=== PATIENT | female | born 1965 | race Caucasian/White ===

== ENCOUNTER 2023-06-22 16:28 | Emergency (ER) | payer MEDICARE, BC ==
[~2023-06-22] VITALS: Ht 167.6 cm; Wt 72.6 kg
[2023-06-22 19:41] VITALS: BP 144/97
[2023-06-22 19:47] LABS: BASOPHILS ABSOLUTE AUTO 0.06 K/mm3 (0.00-0.23); BASOPHILS PERCENT AUTO 1 % (0-2); EOSINOPHILS ABSOLUTE AUTO 0.05 K/mm3 (0.00-0.68); EOSINOPHILS PERCENT AUTO 1 % (0-6); Hemoglobin 13.2 g/dL (11.5-16.0); IMMATURE GRAN ABSOLUTE AUTO 0.05 K/mm3 (0.00-0.10); IMMATURE GRAN PERCENT AUTO 1 % (0-1); LYMPHOCYTES ABSOLUTE AUTO 1.46 K/mm3 (0.84-5.20); LYMPHOCYTES PERCENT AUTO 14 % (21-46); MONOCYTES ABSOLUTE AUTO 0.67 K/mm3 (0.16-1.47); MONOCYTES PERCENT AUTO 7 % (4-13); Mean Corpuscular HGB 28.8 pg (26.0-34.0); Mean Corpuscular HGB Conc 33.8 g/dL (31.5-36.5); Mean Corpuscular Volume 85 fL (80-100); Mean Platelet Volume 8.9 fL (9.1-12.4); NEUTROPHILS ABSOLUTE AUTO 7.98 K/mm3 (1.96-9.15); NEUTROPHILS PERCENT AUTO 78 % (41-73); Platelet Count 446 K/mm3 (150-400); RDW Coefficient Variation 13.4 % (11.7-14.2); RDW Standard Deviation 41.5 fL (35.1-46.3); Red Blood Cell Count 4.59 M/mm3 (3.80-5.20); White Blood Cell Count 10.27 K/mm3 (4.00-11.30)
[2023-06-22] MEDS ORDERED: TIZA4 PO (19:52)
[2023-06-22] MEDS ORDERED: SERT100 PO (19:52)
[2023-06-22] MEDS ORDERED: HYDHCL25 (19:53)
[2023-06-22] MEDS ORDERED: DILT120 PO (19:53)
[2023-06-22] MEDS ORDERED: IMITREX25 MG (19:54)
[2023-06-22] MEDS ORDERED: TRAM50 PO (19:55)
[2023-06-22] MEDS ORDERED: ONDA4ODT MM (19:55)
[2023-06-22 20:05] LABS: Albumin, Blood 3.8 g/dL (3.4-5.0); Albumin/Globulin Ratio 0.9 (0.8-1.8); Bilirubin, Total 0.7 mg/dL (0.1-1.0); Bun/Creatinine Ratio 13.9 (12.0-20.0); Calcium, Blood 9.2 mg/dL (8.5-10.1); Creatinine, Blood 0.79 mg/dL (0.40-1.00); Globulin, Blood 4.2 g/dL (2.2-4.0); Potassium, Blood 2.8 mmol/L (3.5-5.5)
[2023-06-22 20:18] LABS: U Amphetamine Screen Not Detected; U Barbituate Screen Not Detected; U Benzodiazapine Screen Not Detected; U Cannabinoids Screen DETECTED; U Cocaine Screen Not Detected; U Methadone Screen Not Detected; U Methamphetamine Screen Not Detected; U Opiates Screen Not Detected; U Phencyclidine Screen Not Detected
[2023-06-22 20:19] LABS: U Buprenorphine Screen Not Detected; U Oxycodone Screen Not Detected
[2023-06-22] MEDS ORDERED: Seroquel Xr50 MG PO (20:50)
== END 2023-06-22 21:26 | disposition home or self-care (01) ==
LOC: ER 16:28
PROVIDERS: Emergency Medicine
DX: F12.959 Cannabis use, unspecified with psychotic disorder, unspecified (principal); T62.2X1A Toxic effect of other ingested (parts of) plant(s), accidental (unintentional), initial encounter; F09 Unspecified mental disorder due to known physiological condition; F43.10 Post-traumatic stress disorder, unspecified; Z88.5 Allergy status to narcotic agent
CPT/HCPCS: 80053; 83690; 84484; 85025; 93005; 93010; 99285-25; A9270

== ENCOUNTER → 2024-06-21 | Outpatient (CLI) | payer MEDICARE, BC ==
[~2024-06-21] MED LIST: DILT120 PO; HYDHCL25; IMITREX25 MG; ONDA4ODT MM; SERT100 PO; Seroquel Xr50 MG PO; TIZA4 PO; TRAM50 PO
[2024-06-21 13:21] LABS: CHOL/HDL RATIO 4.7; Cholesterol 369 mg/dL (50-200); HDL Cholesterol 79 mg/dL (>39); LDL/HDL RATIO 3.2; Low Density Lipoprotein Chol 257 mg/dL (0-110); Triglycerides 167 mg/dL (30-160); Very Low Density Lipoprot Chol 33 mg/dL (6-32)
== END | disposition home or self-care (01) ==
LOC: LAB 09:25 → LAB SHORT 09:25
PROVIDERS: Nurse Practitioner Family
DX: E78.49 Other hyperlipidemia (principal)
CPT/HCPCS: 80061